=== PATIENT | female | born 2005 | race Caucasian/White ===

== ENCOUNTER 2025-01-28 14:32 | Outpatient (CLI) | payer BC, SELFPAY | END 2025-01-28 14:33 | disposition home or self-care (01) | PROVIDERS: Visit Provider Obstetrics & Gynecology | DX: L65.9 Nonscarring hair loss, unspecified (principal); F06.30 Mood disorder due to known physiological condition, unspecified; N93.9 Abnormal uterine and vaginal bleeding, unspecified; R53.83 Other fatigue | CPT/HCPCS: 84270; 84402; 84403; 84443 ==